=== PATIENT | female | born 1955 ===

== ENCOUNTER 2020-05-06 05:31 | Day surgery (SDC) | payer OTHER ==
[~2020-05-06 05:31] MED LIST: ADULT LOW DOSE81 M1 PO; COZAAR25 MG PO; CRESTOR5 MG PO; MAXIMUM D3325 MCG PO; PROZAC20 MG PO; SEROQUEL200 MG PO; TRICOR145 MG PO
[2020-05-06] MEDS ORDERED: ULTRAM50 MG PO (11:20)
[2020-05-06] MEDS ORDERED: TYLENOL ARTHRI650 MG PO (11:20)
[2020-05-06] MEDS ORDERED: NEURONTIN300 MG PO (11:20)
[2020-05-06] MEDS ORDERED: MIRALAX17 GM PO (11:20)
== END 2020-05-06 14:15 | disposition home or self-care (01) ==
LOC: CIR.AMB 05:31
PROVIDERS: ATTEND Surgery
DX: K42.0 Umbilical hernia with obstruction, without gangrene (principal); Z20.822 Contact with and (suspected) exposure to COVID-19; D17.5 Benign lipomatous neoplasm of intra-abdominal organs